=== PATIENT | male | born 1960 | race Caucasian/White ===

== ENCOUNTER 2021-10-16 10:11 | Emergency (ER) | payer BC, SELFPAY ==
[2021-10-16 10:15] VITALS: BP 177/110; PULSE 96; RESP 20; TEMP 36.9; O2SAT 97; BMI 38.0
[2021-10-16 10:34] LABS: UTC Strep Screen (Rapid) Positive (Negative)
[2021-10-16 11:15] VITALS: BP 177/110; PULSE 96; RESP 20; TEMP 36.9; O2SAT 97
--- NOTE | 2021-10-16 11:22 | HMH.EDUTC ---
[facility] [place] Clinical Impression: Strep throat Disposition: Home, Self-Care Condition on Discharge: Good Instructions: DI for Strep Throat, Strep Throat Additional Instructions: Drink plenty of fluids. Take tylenol or ibuprofen for pain or fever. Take the medications as directed. Follow up with your regular doctor. GO TO THE ER FOR ANY WORSENING SYMPTOMS Throw your tooth brush away and get a new one. Prescriptions: Ondansetron [Zofran 4mg ODT] 4 mg PO Q8HP PRN #12 tab PRN Reason: Nausea Transmission Status: [facility] Amoxicillin/Potassium Clav [Augmentin 875-125 Tablet] 1 tab PO Q12H 10 Days #20 tab Transmission Status: [facility] Referrals: Provider,Referral, MD [Primary Care Provider] - Forms: Work/School Release Time of Disposition: 11:27 Medical Decision Making - Medical Records Medical records reviewed: No: I reviewed the patient's medical records. - Jose Inquiry Pt receiving controlled substance: No Vital Signs: 10/16/21 10:15 10/16/21 11:15 Temperature 98.5 F 98.5 F Temperature Source Oral Pulse Rate 96 H Pulse Rate [Right Brachial] 96 H Respiratory Rate 20 20 Blood Pressure 177/110 H Blood Pressure [Right Arm] 177/110 H Blood Pressure Mean [Right Arm] 132 Blood Pressure Source [Right Arm] Automatic Cuff Blood Pressure Position [Right Arm] Sitting 02 Sat by Pulse Oximetry 97 Oxygen Delivery Method Room Air - Lab Data Lab results reviewed: Yes: I reviewed the patient's lab results. Lab Results 10/16/21 10:30: Strep Scn [facility] Positive A Medical Decision Narrative: He refused a covid-19 test. [facility] [place] - General Stated complaint: sore throat, cough, runny nose, congestion Time Seen by Provider: 10/16/21 11:22 Mode of Arrival: Ambulatory Source of Information: Patient Limitations: No Limitations Description of Symptoms (Recalled from Triage Doc. by RN): PATIENT C/O SORE THROAT SINCE SATURDAY NIGHT AND HAS GOTTEN WORSE HEENT Symptoms (Recalled from RN notes): Yes Resp Symptoms (Recalled from RN notes): No Skin Symptoms (Recalled from RN notes): No MS Symptoms (Recalled from RN notes): No Functional Status (Recalled from RN notes): WNL - History of Present Illness Provider Complaint: He c/o sore throat for the past 3 days. He denies any chest congestion or shortness of breath. He denies any known covid-19 exposure. He states that he thinks he has strep throat. - Related Data Previous Rx's Medication Instructions Recorded Amoxicillin/Potassium Clav 1 tab PO Q12H 10 Days #20 tab 10/16/21 [Augmentin 875-125 Tablet] Ondansetron [Zofran 4mg ODT] 4 mg PO Q8HP PRN #12 tab 10/16/21 Allergies Allergy/AdvReac Type Severity Reaction Status Date / Time No Known Allergies Allergy Verified 10/16/21 10:42 - Worker's Comp Is this a Worker's Comp case?: No [facility] History - Hepatitis A Screen Drug use history?: No High risk sexual behaviors?: No History of sexually transmitted infection?: No Currently employed?: No Childcare worker?: No Do you have indoor plumbing?: Yes Do you have electricity?: Yes Attestation statement:: This patient has been screened for Hepatitis A risk factors. I have reviewed the patient's past medical history: Yes Medical History: Reports:: Diabetes Mellitus Type 2 - Social History Alcohol Intake: never Occupational Status: other ROS Obtained: Yes All systems reviewed & no additional complaints - Constitutional Constitutional: Reports as per HPI - Eyes Eyes: Denies eye discharge - ENT Ears, Nose, Mouth, and Throat: Reports as per HPI - Cardiovascular Cardiovascular: Denies chest pain - Respiratory Respiratory: Denies chest congestion, Reports cough, Denies dyspnea, Denies stridor, Denies wheezing - Gastrointestinal Gastrointestingal: Reports: nausea. Denies: abdominal pain, diarrhea, vomiting - Musculoskeletal Muscul
== END 2021-10-16 11:37 | disposition home or self-care (01) ==
PROVIDERS: Emergency Provider Nurse Practitioner Family
DX: J02.0 Streptococcal pharyngitis (principal)
CPT/HCPCS: 87880; 99202; G0463

== ENCOUNTER 2021-10-27 10:25 | Emergency (ER) | payer BC, SELFPAY ==
[2021-10-27 11:00] VITALS: BP 189/105; PULSE 103; RESP 20; TEMP 37; O2SAT 98; BMI 38.7
--- NOTE | 2021-10-27 11:22 | HMH.EDUTC ---
[facility] [place] Clinical Impression: Viral upper respiratory illness Disposition: Home, Self-Care Condition on Discharge: Good Instructions: DI for Viral Upper Respiratory Infection -- Adult, DI for COVID-19 (Suspected or Confirmed ), Preventing the Spread of Coronavirus Discharge Instructions Additional Instructions: *Monitor Temp, Over the counter Motrin or Tylenol as directed/as needed Tylenol every 4 hours and Motrin every 6 hours (as long as your family doctor has told you that you can take it) for fever or pain. and straight to ER if unable to lower temp less than 101.0 after medication given *Warm salt water gargles may help to soothe the throat *Throat Lozenges *Warm fluids like tea with honey may help to soothe the throat *Sleep elevated *Humidifier/Vaporizer Follow up IMMEDIATELY for new or worsening symptoms or no Noticeable improvement over the next 48-72 hours. 911 for difficulty breathing or swallowing You were tested for today for COVID19 your test result should be back in the next 24-48 hours, you may check your results on the [facility] [employer] health Portal if you have trouble logging on you can call Tech Support You was given a handout with instructions for Self Quarantine and Self isolation for while you wait on test results and what to do if they are positive If you are positive the Health Dept will be contacting you also Make sure to take your Vitamins Vit. C Vit D and Zinc if you can take them Referrals: Provider,Referral, [Primary Care Provider] - As needed Forms: Work/School Release Time of Disposition: 11:33 Medical Decision Making - Jose Inquiry Pt receiving controlled substance: No Jose was queried for this patient: No Vital Signs: 10/27/21 11:00 10/27/21 11:41 Temperature 98.6 F 98.6 F Temperature Source Oral Pulse Rate 103 H Pulse Rate [Left Brachial] 103 H Respiratory Rate 20 20 Blood Pressure 189/105 H Blood Pressure [Left Arm] 189/105 H Blood Pressure Mean [Left Arm] 133 Blood Pressure Source [Left Arm] Automatic Cuff Blood Pressure Position [Left Arm] Sitting 02 Sat by Pulse Oximetry 98 Oxygen Delivery Method Room Air - Lab Data Lab results reviewed: Yes: I reviewed the patient's lab results. Lab Results 10/27/21 11:24: Influenza Type A Ag Negative, Influenza Type B Ag Negative Medical Decision Narrative: Patient states that he is also out of his Metformin and losartan requesting a refill until he can get into see his PCP, Called pharmacy and authorized 30 day supply of medication until he can see his PCP [facility] [place] HPI - General Stated complaint: fever, chills, cough, congestion Time Seen by Provider: 10/27/21 11:22 Mode of Arrival: Ambulatory Source of Information: Patient Limitations: No Limitations Description of Symptoms (Recalled from Triage Doc. 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 States that yesterday he started having chills and body aches and had fever last night States that today he was still not feeling well so he came in to get checked and tested - Related Data Allergies Allergy/AdvReac Type Severity Reaction Status Date / Time No Known Allergies Allergy Verified 10/16/21 10:42 - Worker's Comp Is this a Worker's Comp case?: No [facility] History - Hepatitis A Screen Drug use history?: No High risk sexual behaviors?: No History of sexually transmitted infection?: No Currently employed?: No Childcare worker?: No Do you have indoor plumbing?: Yes Do you have electricity?: Yes Attestation statement:: This patient has been screened for Hepatitis
[2021-10-27 11:25] LABS: UTC Influenza A Antigen Negative (Negative); UTC Influenza B Antigen Negative (Negative)
[2021-10-27 11:41] VITALS: BP 189/105; PULSE 103; RESP 20; TEMP 37; O2SAT 98
== END 2021-10-27 11:50 | disposition home or self-care (01) ==
PROVIDERS: Emergency Provider Nurse Practitioner
DX: U07.1 COVID-19 (principal); J06.9 Acute upper respiratory infection, unspecified
CPT/HCPCS: 87804; 99202; C9803; G0463; U0003; U0005

== ENCOUNTER 2022-10-03 09:35 | Emergency (ER) | payer BC, SELFPAY ==
[2022-10-03 09:45] VITALS: BP 179/98; PULSE 74; RESP 16; TEMP 36.9; O2SAT 95; BMI 37.5
[2022-10-03 10:11] VITALS: BP 179/98; PULSE 74; RESP 16; TEMP 36.9; O2SAT 95
--- NOTE | 2022-10-03 10:15 | EXP.UTC ---
Discharge Plan Disposition Patient Disposition: Home, Self-Care Condition: Good Prescriptions Prescriptions: New prednisone [prednisone] 20 mg tablet 20 mg PO BID 5 Days Qty: 10 0RF benzonatate 100 mg capsule 100 mg PO TID PRN (Reason: cough) Qty: 30 0RF amoxicillin-pot clavulanate 875-125 mg Tablet 1 tab PO Q12H Qty: 20 0RF Referrals Follow up/Referrals: Provider,Referral, MD [Primary Care Provider] - See instructions Activity Restrictions/Add. Instructions Additional Instructions/Restrictions: Start antibiotic today. Be sure to complete entire prescription even if feeling better Monitor temp. Tylenol every 4 hours as needed and / or ibuprofen every 6 hours as needed ( As long as your primary care physician has told you that it ok to take both. For fever/aches/pains ER if no less than 101 despite Tylenol or Motrin Humidifier/vaporizer or hot steamy shower *Tessalon Perles will not cause drowsiness but use at bedtime to help stop cough so that you may get some rest. *Start steroid today. Helps with inflammation therefore, cough and wheezing. Follow directions on the package. Reviewed side effects. Patient reports taking them before. Follow up IMMEDIATELY for new or worsening of symptoms OR no noticeable improvement over the next 48-72 hours. 911 immediately for any life threatening symptoms such as chest pain or difficulty breathing Clinical Impressions Clinical Impression: Sinusitis Instructions Patient Instructions: DI for Sinusitis, Sinusitis Discharge ED Provider: Rachel Jose [facility] [place] General Stated complaint: Headache, drainage, chest congestion Mode of Arrival: Ambulatory Source of Information: Patient Limitations: No Limitations Time Seen by Provider: 10/03/22 10:15 Description of Symptoms (Recalled from Triage Doc. by RN): PATIENT C/O SINUS AND CHEST CONGESTION HEENT Symptoms (Recalled from RN notes): Yes Resp Symptoms (Recalled from RN notes): No Skin Symptoms (Recalled from RN notes): No MS Symptoms (Recalled from RN notes): No Functional Status (Recalled from RN notes): WNL History of Present Illness Provider Complaint: Patient states that he has been having sinus pain and pressure and feels like it is trying to move into his chest area States that today he was feeling worse so he came in to get something to help Related Data Previous Rx's Medication Instructions Recorded amoxicillin 875 mg-potassium 1 tab PO Q12H #20 tabs 10/03/22 clavulanate 125 mg tablet benzonatate 100 mg capsule 100 mg PO TID PRN cough #30 caps 10/03/22 prednisone 20 mg tablet 20 mg PO BID 5 days #10 tabs 10/03/22 Allergies Allergy/AdvReac Type Severity Reaction Status Date / Time No Known Allergies Allergy Verified 10/16/21 10:42 Worker's Comp Is this a Worker's Comp case?: No [facility] Disclaimer: The information contained in this section may have been updated after the patient was seen, as this information can be updated by other users. Medical History (Updated 10/03/22 @ 10:23 by Rachel Jose APRN) Diabetes mellitus type 1 Hyperlipidemia Hypertension Kidney stone Surgical History (Updated 10/03/22 @ 10:04 by Mable Deng RN) History of tonsillectomy Social History (Updated 10/03/22 @ 10:04 by Mable Deng RN) Smoking Status: Unknown if ever smoked alcohol intake: never current occupational status: other Travel in the last 8 weeks: None ROS Obtained: Yes All systems reviewed & no additional complaints except as documented and Yes Systems reviewed as appropriate & no additional complaints except as documented Constitutional Constitutional: Reports system reviewed and no additional complaints, except as documented and Reports as per HPI ENT Ears, Nose, Mouth, and Throat: Reports system reviewed and no additional complaints, except as documented, Reports as per HPI, Reports sinus pain and Reports sinus
== END 2022-10-03 10:47 | disposition home or self-care (01) ==
PROVIDERS: Emergency Provider Nurse Practitioner
DX: J32.9 Chronic sinusitis, unspecified (principal)
CPT/HCPCS: 99212; G0463

== ENCOUNTER 2023-04-25 16:11 | Emergency (ER) | payer BC, SELFPAY ==
[2023-04-25 16:11] VITALS: BP 135/76; PULSE 91; RESP 18; TEMP 36.4; O2SAT 94; BMI 37.5
--- NOTE | 2023-04-25 16:30 | EXP.UTC ---
Discharge Plan Disposition Patient Disposition: Home, Self-Care Condition: Good Prescriptions Prescriptions: New promethazine-DM 6.25-15 mg/5 mL Syrup 5 ml PO Q6H PRN (Reason: Cough) Qty: 240 0RF methylprednisolone 4 mg Tablets,Dose Pack 4 mg PO DIRECTED Qty: 21 0RF amoxicillin-pot clavulanate 875-125 mg Tablet 1 tab PO Q12H Qty: 20 0RF No Action prednisone [prednisone] 20 mg tablet 20 mg PO BID 5 Days Qty: 10 0RF benzonatate 100 mg capsule 100 mg PO TID PRN (Reason: cough) Qty: 30 0RF amoxicillin-pot clavulanate 875-125 mg Tablet 1 tab PO Q12H Qty: 20 0RF Referrals Follow up/Referrals: Evelio Barlow MD [Primary Care Provider] - See instructions Activity Restrictions/Add. Instructions Additional Instructions/Restrictions: Drink plenty of fluids. Take tylenol for pain or fever. Take the medications as directed. Follow up with your regular doctor. GO TO THE ER FOR ANY WORSENING SYMPTOMS Clinical Impressions Clinical Impression: Sinusitis Instructions Patient Instructions: Sinusitis, DI for Sinusitis Discharge ED Provider: Uriel Brown [facility] General Stated complaint: raphael, poss sinus inf Time Seen by Provider: 04/25/23 16:30 History of Present Illness Provider Complaint: He states that for the past 2 weeks he has had sinus congestion, chest congestion and a cough. Related Data Previous Rx's Medication Instructions Recorded amoxicillin 875 mg-potassium 1 tab PO Q12H #20 tabs 10/03/22 clavulanate 125 mg tablet benzonatate 100 mg capsule 100 mg PO TID PRN cough #30 caps 10/03/22 prednisone 20 mg tablet 20 mg PO BID 5 days #10 tabs 10/03/22 amoxicillin 875 mg-potassium 1 tab PO Q12H #20 tabs 04/25/23 clavulanate 125 mg tablet methylprednisolone 4 mg tablets in 4 mg PO DIRECTED #21 tabs 04/25/23 a dose pack promethazine-DM 6.25 mg-15 mg/5 mL 5 ml PO Q6H PRN Cough #240 mL 04/25/23 oral syrup Allergies Allergy/AdvReac Type Severity Reaction Status Date / Time No Known Allergies Allergy Verified 10/16/21 10:42 [facility] Disclaimer: The information contained in this section may have been updated after the patient was seen, as this information can be updated by other users. Medical History Diabetes mellitus type 1 Hyperlipidemia Hypertension Kidney stone Surgical History History of tonsillectomy Social History Smoking Status: Unknown if ever smoked alcohol intake: never current occupational status: other Travel in the last 8 weeks: None ROS Obtained: Yes All systems reviewed & no additional complaints except as documented Constitutional Constitutional: Reports poor appetite Eyes Eyes: Reports system reviewed and no additional complaints, except as documented ENT Ears, Nose, Mouth, and Throat: Reports as per HPI Cardiovascular Cardiovascular: Reports system reviewed and no additional complaints, except as documented and Denies chest pain Respiratory Respiratory: Denies shortness of breath, Denies chest congestion, Reports cough, Denies stridor and Denies wheezing Gastrointestinal Gastrointestingal: Reports system reviewed and no additional complaints, except as documented; Denies abdominal pain, diarrhea or vomiting Musculoskeletal Musculoskeletal: Reports system reviewed and no additional complaints, except as documented and Denies arthralgias Integumentary/Breasts Skin/Breast: Reports system reviewed and no additional complaints, except as documented and Denies rash Neurologic Neurologic: Denies paresthesias Allergic/Immunologic Allergic/Immunologic: Denies wheezing Physical Exam General General appearance: alert and in no apparent distress Eye Eye exam: Present normal appearance, PERRL and EOMI ENT ENT exam: Present mucous membranes moist and normal exte
[2023-04-25 17:16] VITALS: BP 135/76; PULSE 91; RESP 18; TEMP 36.4; O2SAT 94
== END 2023-04-25 17:17 | disposition home or self-care (01) ==
PROVIDERS: Emergency Provider Nurse Practitioner Family; PCP Internal Medicine Adolescent Medicine
DX: J01.90 Acute sinusitis, unspecified (principal); E10.9 Type 1 diabetes mellitus without complications; I10 Essential (primary) hypertension; E78.5 Hyperlipidemia, unspecified
CPT/HCPCS: 99212; 99214; G0463

== ENCOUNTER 2023-11-28 08:47 | Emergency (ER) | payer BC, SELFPAY ==
[2023-11-28 09:35] VITALS: BP 156/85; PULSE 83; RESP 21; TEMP 36.8; O2SAT 95; BMI 39.2
--- NOTE | 2023-11-28 10:03 | EXP.UTC ---
Discharge Plan Disposition Patient Disposition: Home, Self-Care Condition: Good Prescriptions Prescriptions: New benzonatate 100 mg capsule 100 mg PO TID PRN (Reason: cough) Qty: 30 0RF methylprednisolone [Medrol (Scott)] 4 mg tablets,dose pack See Rx Instructions .Route .COMPLEX 6 Days Qty: 21 0RF Rx Instructions: taper pack; amoxicillin-pot clavulanate 875-125 mg Tablet 1 tab PO Q12H Qty: 20 0RF guaifenesin [Mucinex] 600 mg tablet extended release 12hr 1,200 mg PO BID PRN (Reason: cough) Qty: 20 0RF No Action lisinopril 10 mg tablet 10 mg PO DAILY metformin 500 mg Tablet Extended Release 24 Hr 500 mg PO DAILY Referrals Follow up/Referrals: Evelio Barlow MD [Primary Care Provider] - See instructions Activity Restrictions/Add. Instructions Additional Instructions/Restrictions: Start antibiotic today. Be sure to complete entire prescription even if feeling better Monitor temp. Tylenol every 4 hours as needed and / or ibuprofen every 6 hours as needed ( As long as your primary care physician has told you that it ok to take both. For fever/aches/pains ER if no less than 101 despite Tylenol or Motrin Humidifier/vaporizer or hot steamy shower Mucinex during the day for your cough and cough suppressant only at night. Be sure to drink lots of water. Insurance may not cover a prescriptions for mucinex. Might be cheaper to get 400mg tablets and take 2 tablet in the morning, mid-day and evening with lots of water. *Tessalon Perles will not cause drowsiness but use at bedtime to help stop cough so that you may get some rest. *Start steroid today. Helps with inflammation therefore, cough and wheezing. Follow directions on the package. Reviewed side effects. Patient reports taking them before. Follow up IMMEDIATELY for new or worsening of symptoms OR no noticeable improvement over the next 48-72 hours. 911 immediately for any life threatening symptoms such as chest pain or difficulty breathing Clinical Impressions Clinical Impression: Bronchitis Sinusitis Qualifiers: Sinusitis location: unspecified location Chronicity: unspecified Qualified Code(s): J32.9 - Chronic sinusitis, unspecified Instructions Patient Instructions: DI for Sinusitis, Acute Bronchitis Discharge ED Provider: Rachel Jose [facility] HPI General Stated complaint: tightness in chest, cough Mode of Arrival: Ambulatory Source of Information: Patient Limitations: No Limitations Time Seen by Provider: 11/28/23 10:03 Description of Symptoms (Recalled from Triage Doc. by RN): PATIENT C/O CHEST CONGESTION, COUGH, AND DRY/SORE THROAT X 3 DAYS HEENT Symptoms (Recalled from RN notes): Yes Resp Symptoms (Recalled from RN notes): Yes Skin Symptoms (Recalled from RN notes): No MS Symptoms (Recalled from RN notes): No Functional Status (Recalled from RN notes): WNL History of Present Illness Provider Complaint: Patient states that he has been having chest congestion and cough along with throat soreness States feels dry and irritated at times for the last 3 days States that this morning he coughed up some mucous States that when he gets like this he comes in to get some antibiotics to keep it from getting worse Related Data Home Medications Medication Instructions Recorded Confirmed lisinopril 10 mg tablet 10 mg PO DAILY 11/28/23 11/28/23 metformin 500 mg tablet,extended 500 mg PO DAILY 11/28/23 11/28/23 release 24 hr Previous Rx's Medication Instructions Recorded amoxicillin 875 mg-potassium 1 tab PO Q12H #20 tabs 11/28/23 clavulanate 125 mg tablet benzonatate 100 mg capsule 100 mg PO TID PRN cough #30 caps 11/28/23 guaifenesin 600 mg tablet, 1,200 mg PO BID PRN cough #20 tabs 11/28/23 extended release 12 hr (Mucinex) methylprednisolone 4 mg tablets in See Rx Instructions .Route 11/28/23 a dose pack (Medrol (Scott)) .COMPLEX 6 days #21 tabs Allergies Allergy/AdvReac Type Severity Reaction Status Date / Time No Known Allergies Allergy Verified 10/16/21 10:42 Worker's Comp Is this a Worker's Comp case?: No [facility] Disclaimer: The information contained in this section may have been updated after the patient was seen, as this information can be updated by other users. Medical History Diabetes mellitus type 1 Hyperlipidemia Hypertension Kidney stone Surgical History History of tonsillectomy Social History Smoking Status: Unknown if ever smoked alcohol intake: never current occupational status: other Travel in the last 8 weeks: None ROS Obtained: Yes All systems reviewed & no additional complaints except as documented and Yes Systems reviewed as appropriate & no additional complaints except as documented Constitutional Constitutional: Reports system reviewed and no additional complaints, except as documented and Reports as per HPI ENT Ears, Nose, Mouth, and Throat: Reports system reviewed and no additional complaints, except as documented, Reports as per HPI and Reports sore throat Cardiovascular Cardiovascular: Reports system reviewed and no additional complaints, except as documented, Reports as per HPI and Denies chest pain Respiratory Respiratory: Reports system reviewed and no additional complaints, except as documented, Reports as per HPI, Denies shortness of breath, Reports chest congestion and Reports cough Gastrointestinal Gastrointestingal: Reports system reviewed and no additional complaints, except as documented and as per HPI Physical Exam General General appearance: alert and in no apparent distress ENT ENT exam: Present mucous membranes moist Expanded ENT Exam Nose exam: Absent sinus tenderness Throat exam: Present other (Pharyngeal erythema noted with PND) Respiratory Respiratory exam: Present normal lung sounds bilaterally; Absent respiratory distress or wheezes Cardiovascular Cardiovascular exam: Present regular rate, normal rhythm and normal heart sounds Neurological Exam Neurological exam: Present alert, oriented X3 and normal gait Medical Decision Making Jose Inquiry Pt receiving controlled substance: No Jose was queried for this patient: No Vital Signs: 11/28/23 09:35 Temperature 98.2 F Temperature Source Oral Pulse Rate [Left Brachial] 83 Respiratory Rate 21 Blood Pressure [Left Arm] 156/85 H Blood Pressure Mean [Left Arm] 108 Blood Pressure Source [Left Arm] Automatic Cuff Blood Pressure Position [Left Arm] Sitting 02 Sat by Pulse Oximetry 95 Oxygen Delivery Method Room Air Medical Decision Narrative: Patient states that he has taken Medrol in the past without complications or reactions
[2023-11-28 10:21] VITALS: BP 156/85; PULSE 83; RESP 21; TEMP 36.8; O2SAT 95
== END 2023-11-28 10:23 | disposition home or self-care (01) ==
PROVIDERS: Emergency Provider Nurse Practitioner; PCP Internal Medicine Adolescent Medicine
DX: J20.9 Acute bronchitis, unspecified (principal); J01.90 Acute sinusitis, unspecified; R09.89 Other specified symptoms and signs involving the circulatory and respiratory systems; R05.9 Cough, unspecified; R07.0 Pain in throat; I10 Essential (primary) hypertension; E78.5 Hyperlipidemia, unspecified; E11.9 Type 2 diabetes mellitus without complications; Z79.84 Long term (current) use of oral hypoglycemic drugs
CPT/HCPCS: 99212; 99214; G0463

== ENCOUNTER 2024-11-11 12:45 | Emergency (ER) | payer OTHER, SELFPAY ==
[2024-11-11 14:30] VITALS: BP 179/85; PULSE 63; RESP 21; TEMP 36.7; O2SAT 95; BMI 39.0
--- NOTE | 2024-11-11 14:46 | ED_ITS ---
Discharge Plan Disposition Patient Disposition: Home, Self-Care Condition: Good Prescriptions Prescriptions: New benzonatate 100 mg capsule 100 mg PO TID PRN (Reason: cough) Qty: 30 0RF methylprednisolone [Medrol (Scott)] 4 mg tablets,dose pack See Rx Instructions .Route .COMPLEX 6 Days Qty: 21 0RF Rx Instructions: taper pack; amoxicillin-pot clavulanate 875-125 mg Tablet 1 tab PO Q12H Qty: 20 0RF No Action lisinopril 10 mg tablet 10 mg PO DAILY metformin 500 mg Tablet Extended Release 24 Hr 500 mg PO DAILY celecoxib 200 mg Capsule 200 mg PO DAILY Referrals Follow up/Referrals: Evelio Barlow MD [Primary Care Provider] - See instructions Activity Restrictions/Add. Instructions Additional Instructions/Restrictions: *Monitor Temp, Over the counter Motrin or Tylenol as directed/as needed Tylenol every 4 hours and Motrin every 6 hours (as long as your family doctor has told you that you can take it) for fever or pain. and straight to ER if unable to lower temp less than 101.0 after medication given *Warm salt water gargles may help to soothe the throat *Throat Lozenges? *Warm fluids like tea with honey may help to soothe the throat? *Sleep elevated *Humidifier/Vaporizer *Take medication as prescribed Follow up IMMEDIATELY for new or worsening symptoms or no Noticeable improvement over the next 48-72 hours. 911 for difficulty breathing or swallowing Clinical Impressions Clinical Impression: Sinusitis Stand Alone Forms Stand Alone Forms: Work/School Release Instructions Patient Instructions: Sinusitis, DI for Sinusitis Print Language Print Language: Kenyan Discharge ED Provider: Rachel Jose [facility] [place] HPI General Stated complaint: cough congestion fatigued Mode of Arrival: Ambulatory Source of Information: Patient Limitations: No Limitations Time Seen by Provider: 11/11/24 14:46 Description of Symptoms (Recalled from Triage Doc. by RN): PATIENT C/O CONGESTION, HEADACHE, SINUS PRESSURE, COUGH, RUNNY NOSE AND WATERY EYES SINCE YESTERDAY HEENT Symptoms (Recalled from RN notes): Yes Resp Symptoms (Recalled from RN notes): Yes Skin Symptoms (Recalled from RN notes): No MS Symptoms (Recalled from RN notes): No Functional Status (Recalled from RN notes): WNL History of Present Illness Provider Complaint: Pt states that he feels like he has a bad sinus infection, States that he has been having sinus pain and pressure, pressure behind his eyes and cough and yesterday started with his eyes watering and headache Denies known fever, denies body aches Related Data Home Medications ?Medication ?Instructions ?Recorded ?Confirmed lisinopril 10 mg tablet 10 mg PO DAILY 11/28/23 11/11/24 metformin 500 mg tablet,extended 500 mg PO DAILY 11/28/23 11/11/24 release 24 hr celecoxib 200 mg capsule 200 mg PO DAILY 11/11/24 11/11/24 Previous Rx's ?Medication ?Instructions ?Recorded amoxicillin 875 mg-potassium 1 tab PO Q12H #20 tabs 11/11/24 clavulanate 125 mg tablet benzonatate 100 mg capsule 100 mg PO TID PRN cough #30 caps 11/11/24 methylprednisolone 4 mg tablets in See Rx Instructions .Route 11/11/24 a dose pack (Medrol (Scott)) .COMPLEX 6 days #21 tabs Allergies Allergy/AdvReac Type Severity Reaction Status Date / Time No Known Allergies Allergy Verified 10/16/21 10:42 Worker's Comp Is this a Worker's Comp case?: No [facility] Disclaimer: The information contained in this section may have been updated after the patient was seen, as this information can be updated by other users. Medical History Diabetes mellitus type 1 Hyperlipidemia Hypertension Kidney stone Surgical History History of tonsillectomy Social History Smoking Status: Unknown if ever smoked alcohol intake: never current occupational status: other Travel in the last 8 weeks: None Have you lived/traveled outside US in past 30 days?: No Contact w/someone who lives/traveled outside US past 30 days?: No Exposure to someone with infectious disease in past 14 days?: No Do you have a fever (greater than 100.4 F or 38 C)?: No Have you tested positive for COVID-19: No Exposed to someone with COVID-19 in past 14 days?: No Do you have a sore throat?: No Do you have a cough?: Yes Do you have any weakness?: No Do you have any diarrhea?: No Are you experiencing any unusual bleeding?: No Do you have any muscle aches/pain?: No Do you have any abdominal pain?: No Are you experiencing loss of taste or smell?: No ROS Obtained: Yes All systems reviewed & no additional complaints except as documented and Yes Systems reviewed as appropriate & no additional complaints except as documented Constitutional Constitutional: Reports system reviewed and no additional complaints, except as documented, Reports as per HPI and Reports headache(s) ENT Ears, Nose, Mouth, and Throat: Reports system reviewed and no additional complaints, except as documented, Reports as per HPI, Reports headache(s), Reports sinus pain and Reports sinus pressure Cardiovascular Cardiovascular: Reports system reviewed and no additional complaints, except as documented and Reports as per HPI Respiratory Respiratory: Reports system reviewed and no additional complaints, except as documented, Reports as per HPI and Reports cough Gastrointestinal Gastrointestingal: Reports system reviewed and no additional complaints, except as documented and as per HPI Neurologic Neurologic: Reports headache(s) Physical Exam General General appearance: alert and in no apparent distress ENT ENT exam: Present mucous membranes moist Expanded ENT Exam Nose exam: Present sinus tenderness Throat exam: Present other (PND noted) Respiratory Respiratory exam: Present normal lung sounds bilaterally; Absent respiratory distress or wheezes Cardiovascular Cardiovascular exam: Present regular rate, normal rhythm and normal heart sounds Abdominal Exam Abdominal exam: Present soft and normal bowel sounds; Absent distention or tenderness Neurological Exam Neurological exam: Present alert, oriented X3 and normal gait Medical Decision Making Medical Records Screening: Per USPSTF and CDC recommendations, given the prevalence of disease in our region, it is our hospital?s policy to screen for HIV and viral Hepatitis for all patients aged 18 and over and those with ongoing risk factors. Jose Inquiry Pt receiving controlled substance: No Jose was queried for this patient: No Vital Signs: 11/11/24 14:30 Temperature 98.1 F Temperature Source Oral Pulse Rate [Right Brachial] 63 Respiratory Rate 21 Blood Pressure [Right Arm] 179/85 H Blood Pressure Mean [Right Arm] 116 Blood Pressure Source [Right Arm] Automatic Cuff Blood Pressure Position [Right Arm] Sitting 02 Sat by Pulse Oximetry 95 Oxygen Delivery Method Room Air Medical Decision Narrative: Patient states that he is a diabetic but has taken Medrol dose pack in the past without complications or reactions
[2024-11-11 14:51] VITALS: BP 179/85; PULSE 63; RESP 21; TEMP 36.7; O2SAT 95
== END 2024-11-11 14:53 | disposition home or self-care (01) ==
PROVIDERS: Emergency Provider Nurse Practitioner; PCP Internal Medicine Adolescent Medicine
DX: J32.9 Chronic sinusitis, unspecified (principal)
CPT/HCPCS: 99213; G0381

== ENCOUNTER 2025-07-22 18:22 | Emergency (ER) | payer OTHER, SELFPAY ==
[2025-07-22 18:31] VITALS: BP 164/84; PULSE 62; RESP 18; TEMP 36.8; O2SAT 100; BMI 39.9
--- OUTSIDE RECORDS SUMMARY | 2025-07-22 18:45 | XMS_ITS | Clinical Summary ---
Author Organization [facility] Address [address] [place] [address] Care Team Providers Care Interpreter Translator Name Role Phone Evelio Barlow MD Primary Care Provider [phone] Allergies No known active allergies Social History Tobacco Use Types Packs/Day Years Used Date Smoking Tobacco: Never Assessed Sex and Gender Information Value Date Recorded Sex Assigned at Not on file Legal Sex Male 3:42 PM EDT Gender Identity Not on file Sexual Orientation Not on file Last Filed Vital Signs Vital Sign Reading Time Taken Comments Blood Pressure 122/78 06/28/2023 2:27 PM EDT Pulse 58 06/28/2023 2:27 PM EDT Temperature - - Respiratory Rate - - Oxygen Saturation - - Inhaled Oxygen Concentration - - Weight 113 kg (250 lb) 06/28/2023 12:59 PM EDT Height 170.2 cm (5' 7 ) 06/28/2023 12:59 PM EDT Body Mass Index 39.16 06/28/2023 12:59 PM EDT Plan of Treatment Health Maintenance Due Date Last Done Comments [facility]-Depression Screening 1962 [facility]-HIV Screening 1962 [facility]-Hepatitis C Screening 1962 [facility]-/Child/Adol SDOH Screenings 1962 [facility]-Obesity Intervention 02/06/1968 [facility]- SDOH Screenings 02/06/1980 [facility]-Adult SDOH Screenings 02/06/1980 [facility]-DTaP,Tdap,and Td Vaccine s (1 - Tdap) 1981 CT Colonography 2007 Colonoscopy 2007 FIT-DNA 2007 FIT 2007 FOBT 2007 Sigmoidoscopy 2007 [facility]-Colorectal Cancer Screening 2007 [facility]-Pneumococcal Vaccine: 50 + Years (1 of 1 - PCV) 02/06/2012 [facility]-Zoster Vaccines (1 of 2) 02/06/2012 [id number] Vaccine (1 - 20 24-25 season) 2025 [facility]-Influenza Vaccine (#1) 2025 [facility]-RSV Vaccine: 60+ Years o r (1 - 1-dose 75+ series) 2037 HPV Vaccines Aged Out No longer eligi ble based on patient's age to complete this topic [facility]-HIB Vaccines Aged Out No longer e ligible based on patient's age to complete this topic [facility]-Hepatitis A Vaccines Aged Out No longer eligible based on patient's age to complete this topic [facility]-IPV Vaccines Aged Out No longer e ligible based on patient's age to complete this topic [facility]-Rotavirus Vaccines Aged Out No lo nger eligible based on patient's age to complete this topic Insurance EMILY Care Teams Interpreter Translator Relationship Specialty Start Date End Date Evelio Barlow MD [address] [place] [id number] PCP - General Internal Medicine 06/28/23
--- OUTSIDE RECORDS SUMMARY | 2025-07-22 18:45 | XMS_ITS | Clinical Summary ---
Author Organization [facility] Address [address] [place] [address] Care Team Providers Care Automatic Splicing Machine Operator Name Role Phone Evelio Barlow MD Primary Care Provider + [phone] Allergies No known active allergies Medications celecoxib (CeleBREX) 200 MG capsule 03/03/2023 Active Farxiga 10 MG tablet Take 10 mg by mouth Daily. 04/06/2023 Active lisinopril (PRINIVIL,ZESTRI L) 10 MG tablet 03/06/2023 Act tila metFORMIN ER (GLUCOPHAGE-XR) 500 MG 24 hr tablet Take 1 tablet by mouth Daily. 04/06/2023 Active rosuvastatin (CRESTOR) 10 MG tablet 01/11/2023 Active Active Problems Problem Noted Date Diagnosed Date Hypersomnia 07/13/2024 Assessment & Plan (07/13/2024 1:38 PM EDT): Patient reports worsening daytime sleepiness and fatigue and loud snoring. - Home sleep study for further evaluation Abnormal finding on imaging 07/08/2023 Assessment & Plan (07/13/2024 1:38 PM EDT): Coronary CTA from 07/03/2023 noted a superior segment right lower pulmonary lobe pleural-based 13 mm pulmonary nodular opacity, favored to be atelectasis. Based on size, follow-up CT chest without contrast was recommended in 6-12 months. He completed a repeat CT of chest on 01/21/2024 that revealed no focal pneumonia, bibasilar linear atelectasis or scarring. Scattered micro nodularities, probably benign. Consider follow-up CT chest in 6 months. Also incidentally noted was evolving liver cirrhosis with background hepatic steatosis. Too small to characterize right hepatic lobe hypodense lesion. Follow-up CT or MRI of the liver with contrast, liver mass protocol recommended in 6 months. He was referred to GI/Dr. Watters at that time. However, he lost his insurance and did not follow-up with GI or have repeat CT scan. -Repeat CT of chest without contrast - GI referral to Dr. Watters Assessment & Plan (07/08/2023 8:57 PM EDT): Coronary CTA from 07/03/2023 noted a superior segment right lower pulmonary lobe pleural-based 13 mm pulmonary nodular opacity, favored to be atelectasis. Based on size, follow-up CT chest without contrast is recommended in 6-12 months. -We will repeat CT scan in 6 months. Abnormal nuclear stress test 05/28/2023 Assessment & Plan (07/08/2023 9:06 PM EDT): Coronary CTA from 07/03/2023 showed mild coronary calcification with an Agatston score = 56 using the AJ-130 method, which represents 56 percentile when matched for age, gender and ethnicity. Vascular age is 70 years. Small calcified plaque coronary artery disease about the distal left main and proximal LAD. No significant epicardial coronary artery stenoses. - Continue rosuvastatin at current dose. Assessment & Plan (05/28/2023 9:49 PM EDT): Nuclear stress test 05/07/2023-mildly reduced left ventricular systolic function with estimated ejection fraction of 41% at rest, we will correlate clinically with echocardiogram. No discrete areas of ischemia seen. No ST changes noted on treadmill stress testing. Intermediate risk study because of the low ejection fraction. Discussed results and further cardiac testing in detail with patient. - We will proceed with coronary CTA for further evaluation. Aortic root dilation 05/28/2023 Assessment & Plan (07/13/2024 1:34 PM EDT): Mild aortic root dilation noted on echocardiogram CT angiogram was ordered at last office visit but has not been completed yet. Assessment & Plan (07/08/2023 8:59 PM EDT): Mild aortic root dilation noted on echocardiogram. - CT scan in 6-12 months. High cholesterol 04/23/2023 Assessment & Plan (07/13/2024 1:34 PM EDT): Managed by primary care provider. -Continue Crestor 10 mg once daily. Assessment & Plan (04/23/2023 4:28 PM EDT): Managed by primary care provider. -Continue Crestor 10 mg once daily. HTN (hypertension) 04/23/2023 Assessment & Plan (07/13/2024 1:34 PM EDT): Hypertension is stable and controlled Continue current treatment regimen. Dietary sodium restriction. Weight loss. Regular aerobic exercise. Blood pressure will be reassessed in 6 months. Assessment & Plan (07/08/2023 8:59 PM EDT): Hypertension is stable . Continue current treatment regimen. Continue current medications. Blood pressure will be reassessed at the next regular appointment. Assessment & Plan (05/28/2023 9:42 PM EDT): Hypertension is unchanged. Dietary sodium restriction. Weight loss. Regular aerobic exercise. Continue current medications. Blood pressure will be reassessed in 4 weeks. -Monitor blood pressure at home and keep a log of readings. -Consider adjusting medication at follow-up visit if BP continues to stay elevated Assessment & Plan (04/23/2023 4:30 PM EDT): Blood pressure elevated today at 148/80. - Monitor blood pressure at home and keep a log of readings. - Consider adjusting medication at follow-up visit if BP continues to stay elevated. Resolved Problems Problem Noted Date Diagnosed Date Resolved Date Precordial chest pain 04/23/20232023 Assessment & Plan (05/28/2023 9:50 PM EDT): Patient has several cardiac risk factors including history of diabetes, hypertension and hyperlipidemia. Assessment & Plan (04/23/2023 4:30 PM EDT): Patient has several cardiac risk factors including history of diabetes, hypertension and hyperlipidemia. - Nuclear stress test and echocardiogram for further evaluation and management. Family History Medical History Relation Name Comments Cancer Father Alzheimer's disease Mother Relation Name Status Comments Father Mother Social History Tobacco Use Types Packs/Day Years Used Date Smoking Tobacco: Never Passive Smoke Exposure: Never Smokeless Tobacco: Never Tobacco Cessation:Counseling Given: Yes Alcohol Use Standard Drinks/Week Comments Not Currently 0 (1 standard drink = 0.6 oz pur e alcohol) Abuse Screen Answer Date Recorded Unsafe at Home or Work/School Not on file Feels Threatened by Someone? Not on file Does Anyone Keep You from Co ntacting Others or Doint Things Outside the Home? Not on file 07/19/2023 Physical Sign of Abuse Present Not on file 1 Housing Stability Answer Date Recorded Current Living Arrangements Not on file 07/07 Potentially Unsafe Housing Conditions Not on catarina e 07/19/2023 Family and Community Support Answer Damaso e Recorded Help with Day-to-Day Activities Not on file 07/19/2023 Lonely or Isolated Not on file 07/19/2023 Employment Answer Date Recorded Do you want help finding or keeping work or a frank b? Not on file 07/19/2023 Disabilities Answer Date Recorded Concentrating, Remembering, or Making Decisions Difficulty Not on file 07/19/2023 Doing Errands Independently Difficulty Not on fi le 07/19/2023 Education Answer Date Recorded Help with school or training? Not on file Preferred Language Not on file 07/19/2023 Sex and Gender Information Value Date Recorded Sex Assigned at Not on file Legal Sex Male 4:07 PM EDT Gender Identity Not on file Sexual Orientation Not on file Last Filed Vital Signs Vital Sign Reading Time Taken Comments Blood Pressure 130/84 07/13/2024 8:37 AM EDT Pulse 84 07/13/2024 8:37 AM EDT Temperature - - Respiratory Rate - - Oxygen Saturation 94% 07/13/2024 8:37 AM EDT Inhaled Oxygen Concentration - - Weight 117 kg (258 lb) 07/13/2024 8:37 AM EDT Height 170.2 cm (5' 7 ) 07/13/2024 8:37 AM EDT Body Mass Index 40.41 07/13/2024 8:37 AM EDT Plan of Treatment Health Maintenance Due Date Last Done Comments LIPID PANEL 1962 TDAP/TD VACCINES (1 - Tdap) 1981 COLOGUARD 2007 COLON CANCER SCREENING 5 YEAR SIGMOIDOSCOPY 2007 COLONOSCOPY [address] SCREENING [address] COLONOGRAPHY 2007 FECAL OCCULT BLOOD TEST 2007 FIT Testing (1 year) 2007 Pneumococcal Vaccine 50+ (1 of 1 - PCV) 02/06/2012 ZOSTER VACCINE (1 of 2) 02/06/2012 ANNUAL PHYSICAL 04/02/2023 HEPATITIS C SCREENING 04/02/2023 INFLUENZA VACCINE 05/07/2025 Insurance Care Teams Automatic Splicing Machine Operator Relationship Specialty Start Date End Date [facility]velio Barlow [facility] [address] [facility] [address] [place] [address] PCP - General Adolescent Medicine 03/26/23
--- NOTE | 2025-07-22 18:46 | PC.NURSE ---
patient taken back to treatment room 14 at this time. family sent to waiting area.
--- NOTE | 2025-07-22 18:50 | ED_ITS ---
<Statement entered by Bailey Reynoso DO - 07/22/25 21:25> I was consulted by the EVER, and we discussed the complexity of problems being addressed. I approve the treatment and management plan for this patient's care in the emergency department, thus performing a substantial portion of the medical decision making. Bailey Reynoso DO Discharge Plan Disposition Patient Disposition: Home, Self-Care Condition: Good Prescriptions Prescriptions: New sulfamethoxazole-trimethoprim [Bactrim DS] 800-160 mg tablet 1 tab PO Q12H 7 Days Qty: 14 0RF cyclobenzaprine 10 mg tablet 10 mg PO TID PRN (Reason: muscle spasm) Qty: 15 0RF No Action lisinopril 10 mg tablet 10 mg PO DAILY metformin 500 mg Tablet Extended Release 24 Hr 500 mg PO DAILY celecoxib 200 mg Capsule 200 mg PO DAILY benzonatate 100 mg capsule 100 mg PO TID PRN (Reason: cough) Qty: 30 0RF methylprednisolone [Medrol (Scott)] 4 mg tablets,dose pack See Rx Instructions .Route .COMPLEX 6 Days Qty: 21 0RF Rx Instructions: taper pack; amoxicillin-pot clavulanate 875-125 mg Tablet 1 tab PO Q12H Qty: 20 0RF Referrals Follow up/Referrals: Evelio Barlow MD [Primary Care Provider, Internal Medicine] - See instructions Activity Restrictions/Add. Instructions Additional Instructions/Restrictions: You were evaluated on an emergency basis. It is very important that you follow- up with your primary care provider and any specialist who we discussed within the next 2 days in order to better assess your health more comprehensively. For example, incidental findings on imaging or laboratory results that were performed today may be discovered, which do not require immediate medical care, but may impact your health in the future. If your symptoms worsen or persist, please return to the emergency department immediately for reassessment. Take all medications as prescribed. In queue for allowing me to participate in your health care, and I hope you feel better soon. Clinical Impressions Clinical Impression: Urinary tract infection Stand Alone Forms Stand Alone Forms: Work/School Release Instructions Patient Instructions: Urinary Tract Infection Print Language Print Language: Pashto Discharge ED Provider: Bailey Reynoso General Adult HPI General Chief complaint: Back Pain/Injury Stated complaint: Right Lower Back Pain Time Seen by Provider: 07/22/25 18:50 Mode of Arrival: Ambulatory Source of Information: Patient Description of Symptoms (Recalled from ER Triage Doc. by RN): patient presents to the Ed for right lower back/ flank pain. patient denies urinary issues. patient does state his urine looks wilmer . patient rates pain 3/10. History of Present Illness HPI narrative: 65-year-old male presents emergency department with complaints of dark urine with right flank pain for the past 2 days. Reports he has a history of kidney stones and states this feels similar. He denies fever, nausea, vomiting, diarrhea. Related Data Home Medications ?Medication ?Instructions ?Recorded ?Confirmed lisinopril 10 mg tablet 10 mg PO DAILY 11/28/2302/28 metformin 500 mg tablet,extended 500 mg PO DAILY 11/2811/11/24 release 24 hr celecoxib 200 mg capsule 200 mg PO DAILY 11/11/2402/28 Previous Rx's ?Medication ?Instructions ?Recorded amoxicillin 875 mg-potassium 1 tab PO Q12H #20 tabs clavulanate 125 mg tablet benzonatate 100 mg capsule 100 mg PO TID PRN cough #30 caps 11/11/24 methylprednisolone 4 mg tablets in See Rx Instructions .Route 11/11/24 a dose pack (Medrol (Scott)) .COMPLEX 6 days #21 tabs cyclobenzaprine 10 mg tablet 10 mg PO TID PRN muscle s pasm #15 07/22/25 tabs sulfamethoxazole 800 1 tab PO Q12H 7 days #14 tab s 07/22/25 mg-trimethoprim 160 mg tablet (Bactrim DS) Allergies Allergy/AdvReac Type Severity Reaction Status Date / Time No Known Allergies Allergy Verified 10/16/21 10:42 [facility] Disclaimer: The information contained in this section may have been updated after the patient was seen, as this information can be updated by other users. Medical History Diabetes mellitus type 1 Hyperlipidemia Hypertension Kidney stone Surgical History History of tonsillectomy Social History Smoking Status: Never smoker alcohol intake: never current occupational status: other Travel in the last 8 weeks?: None Have you lived/traveled outside [place] in past 30 days?: No Contact w/someone who lives/traveled outside [place] past 30 days?: No Exposure to someone with infectious disease in past 14 days?: No Do you have a fever (greater than 100.4 F or 38 C)?: No Have you tested positive for COVID-19?: No Exposed to someone with COVID-19 in past 14 days?: No Do you have a sore throat?: No Do you have a cough?: No Do you have any weakness?: No Do you have any diarrhea?: No Are you experiencing any unusual bleeding?: No Do you have any muscle aches/pain?: No Do you have any abdominal pain?: No Are you experiencing loss of taste or smell?: No ROS Obtained: Yes other Genitourinary Male Genitourinary: Reports flank pain and Reports other (Dark urine) Physical Exam Narrative Physical exam: General: Awake, aware, in no acute distress HEENT: Normocephalic, no evidence of trauma CV: RRR, no murmurs, rubs, or gallops. Patient with 1+ pitting edema in the bilateral lower extremities Pulm: CTA bilaterally with no rhonchi, rales, wheezes ABD: Nontender, no swelling, guarding, or rebound tenderness. Patient with mild right CVA tenderness on palpation. Psych, appropriate mood and affect General General appearance: alert Respiratory Respiratory exam: Present normal lung sounds bilaterally Cardiovascular Cardiovascular exam: Present regular rate Neurological Exam Neurological exam: Present alert Medical Decision Making Medical Records Screening: Per USPSTF and CDC recommendations, given the prevalence of disease in our region, it is our hospital?s policy to screen for HIV and viral Hepatitis for all patients aged 18 and over and those with ongoing risk factors. Jose Inquiry Pt receiving controlled substance: No Vital Signs: 07/22/25 18:31 Temperature 98.2 F Temperature Source Oral Pulse Rate [Right Radial] 62 Respiratory Rate 18 Blood Pressure [Right Arm] 164/84 H Blood Pressure Mean [Right Arm] 110 Blood Pressure Source [Right Arm] Automatic Cuff Blood Pressure Position [Right Arm] Sitting 02 Sat by Pulse Oximetry 100 Oxygen Delivery Method Room Air Lab Data Lab Results 07/22/25 18:35: Urine Color Yellow, Urine Appearance Sl cloudy, Urine pH 6.0, Ur Specific [place] 1.025, Urine Protein Negative, Urine Glucose (UA) Trace, Urine Ketones Negative, Urine Blood Negative, Urine Nitrate Positive A, Urine Bilirubin Negative, Urine Urobilinogen 4.0, Ur Leukocyte Esterase 1+ A, Urine RBC None, Urine WBC 10-20, Ur Squamous Epith Cells None, Urine Bacteria 4+ 07/22/25 18:51: WBC 8.2, RBC 5.70, Hgb 16.6, Hct 49.4, MCV 86.7, MCH 29.1, MCHC 33.6, RDW 14.1, Plt Count 257, MPV 9.4, Neut % (Auto) 65.2, Lymph % (Auto) 25.0, Sullivan % (Auto) 6.9, Eos % (Auto) 1.8, Baso % (Auto) 0.9, Neut # (Auto) 5.3, Lymph # (Auto) 2.0, Sullivan # (Auto) 0.6, Eos # (Auto) 0.2, Baso # (Auto) 0.1, Sodium 138, Potassium 4.1, Chloride 99, Carbon Dioxide 31 H, Anion Gap 12.1, BUN 21 H, Creatinine 1.20, Estimated Creat Clear 103, Estimated GFR 61, Est GFR ( Amer) 74, Glucose 139 H, Calcium 9.1, Magnesium 1.9, Total Bilirubin 0.8, AST 45, ALT 42, Alkaline Phosphatase 126, Total Protein 7.7, Albumin 4.4, Globulin 3.3 H, Albumin/Globulin Ratio 1.3 07/22/25 18:51 07/22/25 18:51 Orders (Tests/Meds): ED MEDICATIONS Generic Name Dose Route Start Last Admin Trade Name Freq PRN Reason Stop Dose Admin Ceftriaxone Sodium 1 gm/ 50 mls @ 100 mls/hr 07/22/25 20:00 07/22/25 20:07 Sodium Chloride IV 08/01/25 19:59 100 mls/hr Q24H PAM Administration Discontinued Medications Generic Name Dose Route Start Last Admin Trade Name Freq PRN Reason Stop Dose Admin Sodium Chloride 1,000 mls @ 999 mls/hr 07/22/25 18:54 07/22/25 19:31 Sod Chlor 0.9% 1000ml Bag IV 07/22/25 19:54 999 mls/hr .Q1H1M ONE Administration Ketorolac Tromethamine 15 mg 07/22/25 18:54 07/22/25 19:31 Ketorolac 15mg/Ml Vial IV 07/22/25 18:55 15 mg ONCE ONE Administration Orphenadrine Citrate 60 mg 07/22/25 18:54 07/22/25 19:31 Orphenadrine Citrate 60mg/2ml Vial IV 07/22/25 18:55 60 mg ONCE ONE Administration ORDERS Category Date Time Status CT abdomen pelvis wo con Stat Cat Scan 07/22/25 18:54 Completed CBC w/Auto Diff [Complete Blood Count Auto Diff] Stat Lab 07/22/25 18:51 Completed CMP [Comprehensive Metabolic Panel] Stat Lab 07/22/25 18:51 Completed Magnesium Stat Lab 07/22/25 18:51 Completed Urinalysis and Microscopic Stat Lab 07/22/25 18:35 Completed Urine Culture Stat Micro 07/22/25 18:35 Received Medical Decision Narrative: Initial impression of presenting illness: 65-year-old male with a history of kidney stones presents emergency department with complaints of dark urine and right flank pain for the past 2 days. He denies fever, nausea, vomiting, diarrhea. Differential diagnosis includes but is not limited to: Musculoskeletal strain, urinary tract infection, kidney stone, pyelonephritis Patient arrives hemodynamically stable, afebrile, without respiratory distress with vital signs interpreted by myself. Initial physical exam reveals mild tenderness on palpation of right CVA. no tenderness on palpation of abdomen with normal active bowel sounds. Patient has 1+ pitting edema to bilateral lower extremities. Rest of exam is unremarkable. Initial diagnostic plan: Normal saline bolus for hydration, Toradol and Norflex for pain control, laboratory studies including urinalysis CT of abdomen pelvis without contrast Results from initial plan were reviewed and interpreted by myself, pertinent positives include: Laboratory studies were nonactionable. Urinalysis positive nitrites, 4+ bacteria as well as 10-20 white blood cells per high-power field. CT of abdomen pelvis without contrast shows a 5 mm liver cyst as well as cirrhosis. Interventions in the ED: Patient was given normal saline bolus for hydration as well as Toradol and Norflex for pain control. He was also given Rocephin for treatment of his urinary tract infection. Patient was made aware of the results and the findings, upon reevaluation patient has remained stable throughout stay, symptoms have improved. Patient reports his pain has improved. Disposition: Reviewed findings today's workup with patient informed that he does have a urinary tract infection. Advised him that we will treat with Bactrim. Vies patient that we can also try a anti-inflammatory and muscle relaxer as he reports these medications have improved his pain during his stay in the ER. I also discussed the CT findings with patient informed him that he does appear to have a 5 mm liver cyst as well as cirrhosis and recommended that he follow-up with his primary care for ongoing evaluation and monitoring of these findings. Instructed him to return to the emergency department any new or worsening symptoms including uncontrolled pain, uncontrolled fevers or vomiting and diarrhea. Patient was agreeable to plan of care. Patient made aware of findings and had a detailed discussion with symptomatic care and return precautions, patient voiced understanding. Critical Care Critical Care Time Critical Care Time: No
--- NOTE | 2025-07-22 18:54 | CT_ITS ---
PROCEDURE INFORMATION: Exam: CT Abdomen And Pelvis Without Contrast Exam date and time: 07/22/2025 7:08 PM Age: 65 years old Clinical indication: Abdominal pain; Additional info: Rlq/flank pain TECHNIQUE: Imaging protocol: Computed tomography of the abdomen and pelvis without contrast. Radiation optimization: All CT scans at this facility use at least one of these dose optimization techniques: automated exposure control; mA and/or kV adjustment per patient size (includes targeted exams where dose is matched to clinical indication); or iterative reconstruction. COMPARISON: No relevant prior studies available. FINDINGS: Lungs: Mild scarring within the lung bases. Liver: Moderate to severe cirrhosis. Moderate diffuse hepatic steatosis. Simple hepatic cyst near the liver dome measures 5 mm. Gallbladder and biliary ducts: Normal. No calcified stones. No ductal dilation. Pancreas: The pancreas is normal. Spleen: Spleen at the upper limits of normal in size. Adrenal glands: The adrenal glands appear within normal limits. Kidneys and ureters: The kidneys are normal. Stomach and bowel: The stomach appears within normal limits. No wall thickening or inflammatory change. Appendix: No evidence of appendicitis. Intraperitoneal space: No free air. No evidence for focal fluid collection or ascites. No evidence for omental thickening. Vasculature: Unremarkable. No abdominal aortic aneurysm. Lymph nodes: Unremarkable. No pathologically enlarged lymph nodes are identified. Urinary bladder: The bladder appears within normal limits. No wall thickening. Reproductive: Unremarkable as visualized. Bones/joints: Unremarkable. No acute fracture. Soft tissues: Unremarkable. IMPRESSION: 1. Moderate to severe cirrhosis. Moderate diffuse hepatic steatosis. Simple hepatic cyst near the liver dome measures 5 mm. 2. Spleen at the upper limits of normal in size. 3. No acute inflammatory process identified within the abdomen or pelvis.
[2025-07-22 19:02] LABS: Hematocrit 49.4 % (42.0-52.0); Hemoglobin 16.6 g/dL (14.1-18.0); Immature Granulocytes % 0.2 %; Mean Corpuscular HGB Conc 33.6 g/dL (31.8-35.4); Mean Corpuscular Hemoglobin 29.1 pg (27.0-31.2); Mean Corpuscular Volume 86.7 fl (80-94); Nucleated Red Blood Cells % 0 %; Platelet Count 257 K/mm3 (142-424); Red Blood Count 5.70 M/mm3 (4.60-6.20); Red Cell Distribution Width-SD 44.9 fL; White Blood Count 8.2 K/mm3 (4.8-10.8)
[2025-07-22 19:02] LABS: Microscopic, Urine URINE MICROSCOPIC (MICROSCOPIC)
[2025-07-22 19:04] LABS: Bilirubin,Urine Negative (Negative); Color,Urine YELLOW (Yellow); Glucose,Urine (UA) TRACE (Negative); Ketones,Urine Negative (Negative); Leukocyte Esterase,Urine 1+ (Negative); PH,Urine 6.0 (5.0-8.5); Protein,Urine Negative (Negative); Specific Gravity, Urine 1.025 (1.005-1.030); Urobilinogen,Urine 4.0 EU/dl (0.2)
[2025-07-22 19:15] LABS: Chloride 99 mmol/L (98-107)
[2025-07-22 19:16] LABS: Albumin Level 4.4 g/dl (3.5-5.0); Potassium 4.1 mmoL/L (3.5-5.1); Sodium 138 mmol/L (136-145)
[2025-07-22 19:18] LABS: Anion Gap 12.1 mEq/L (5-15); Blood Urea Nitrogen 21 mg/dl (9-20); Carbon Dioxide 31 mmol/L (22.0-30.0); Creatinine Clearance Estimated 103 mL/min (50-200); Creatinine,Serum 1.20 mg/dl (0.66-1.25); Estimated Glomerular Filt Rate 61 ml/min (>60); GFR (African American) 74 ML/MIN (>60)
[2025-07-22 19:18] LABS: Bacteria,Urine 4+ /lpf
[2025-07-22 19:19] LABS: Alanine Aminotransferase 42 U/L (12-78); Albumin/Globulin Ratio 1.3 (1.1-1.8); Alkaline Phosphatase 126 U/L (38-126); Aspartate Amino Transferase 45 U/L (17-59); Bilirubin,Total 0.8 mg/dl (0.2-1.3); Calcium 9.1 mg/dl (8.4-10.2); Globulin 3.3 g/dL (1.3-3.2); Glucose 139 mg/dl (74-100); Magnesium 1.9 mg/dl (1.6-2.3); Total Protein,Serum 7.7 g/dl (6.3-8.2)
[2025-07-22] MEDS: KETOROLAC 15MG/ML VIAL 15 MG IV (19:31)
[2025-07-22] MEDS: 0.9 % SODIUM CHLORIDE 1000ML 1,000 ML 999 ML IV (19:31)
[2025-07-22] MEDS: ORPHENADRINE CITRATE 60MG/2ML VIAL 60 MG IV (19:31)
[2025-07-22] MEDS: CEFTRIAXONE 1 GM 1 GM in 0.9 % SODIUM CHLORIDE 50 ML IV (20:07)
[2025-07-22 20:28] VITALS: BP 168/66; PULSE 63; RESP 15; TEMP 36.8; O2SAT 97
[2025-07-22 20:30] VITALS: BP 168/88; PULSE 59; RESP 15; TEMP 36.9; O2SAT 100
[2025-07-22] MEDS: ACETAMINOPHEN 325MG TAB 650 MG PO (20:36)
--- NOTE | 2025-07-25 04:01 | PC.NURSE ---
culture results given to MD Sauceda, no new prescriptions at this time
== END 2025-07-22 20:52 | disposition home or self-care (01) ==
PROVIDERS: Nurse Practitioner Family; Emergency Provider Student in an Organized Health Care Education/Training Program; PCP Internal Medicine Adolescent Medicine
DX: N39.0 Urinary tract infection, site not specified (principal); R10.A1 Flank pain, right side; M54.59 Other low back pain; K74.60 Unspecified cirrhosis of liver; K76.89 Other specified diseases of liver; B96.20 Unspecified Escherichia coli [E. coli] as the cause of diseases classified elsewhere
CPT/HCPCS: 74176; 80053; 81001; 83735; 85025; 87086; 87088; 87186; 96361; 96365; 96375; 99284; J0696; J1885; J2360; J7030